=== PATIENT | female | born 1980 | race Caucasian/White ===

== ENCOUNTER 2020-05-10 16:11 | Emergency (ER) | payer OTHER, SELFPAY ==
[~2020-05-10] VITALS: Ht 165.1 cm; Wt 83.9 kg
[2020-05-10 16:14] VITALS: BP_SYST 125
--- NOTE | 2020-05-10 16:21 | NUR ---
Placed in waiting room
--- NOTE | 2020-05-10 16:30 | NUR ---
Pt walked in to ER with c/o cough and SOB x 3 days. V/S stable, no distress noted. Pt is currently afebrile.
--- NOTE | 2020-05-10 17:00 | NUR ---
ER at bedside examining patient.
[2020-05-10 18:51] VITALS: BP_SYST 125
--- NOTE | 2020-05-10 18:51 | NUR ---
Patient given written and verbal discharge instructions and verbalizes understanding. ER MD discussed with patient the results and treatment provided. Patient in stable condition. ID arm band removed. No prescriptions given. Patient educated on pain management and to follow up with PMD. Pain Scale 0. Opportunity for questions provided and answered. Medication side effect fact sheet provided.
== END 2020-05-10 18:51 | disposition still patient (30) ==
LOC: SED 16:11
DX: R06.02 Shortness of breath (principal); Z20.828 Contact with and (suspected) exposure to other viral communicable diseases
CPT/HCPCS: 36415; 71045; 99284

== ENCOUNTER 2022-11-08 21:05 | Emergency (ER) | payer OTHER ==
[~2022-11-08] VITALS: Ht 165.1 cm; Wt 86.2 kg
[2022-11-08] MEDS ORDERED: NACL 0.9% 1,000 ML IV ONE (21:15)
[2022-11-08] MEDS ORDERED: KETOROLAC TROMETHAMINE 30 MG VIAL IVP ONE (21:15)
[2022-11-08] MEDS ORDERED: ONDANSETRON HCL 4 MG/2 ML VIAL IVP ONE (21:15)
[2022-11-08] MEDS ORDERED: MORPHINE 4 MG INJ. 4 MG/ML VIAL IVP ONE ×2 (21:15→23:30)
[2022-11-08 21:17] VITALS: BP_SYST 137
--- NOTE | 2022-11-08 21:17 | NUR ---
Patient to ER bed 8 to gown for evaluation. Side rails up. Report given to Geovani KO.
--- NOTE | 2022-11-08 21:27 | NUR ---
ER Dr. OATES at bedside examining patient.
--- NOTE | 2022-11-08 21:30 | NUR ---
Pt bib self from work, ambulated to bed 8. Pt A&Ox4, able to make needs known. Pt c/o right flank pain beginning 2 hours ago and pain progressively got worse. Pt rates pain 10/10. Pt denies SOB and chest pain, fever and chills. Pt denies N/V. Pt states she had diarrhea in the morning. Pt denies blood in stools. Safety precautions in place.
[2022-11-08 21:56] LABS: BASOPHILS # (AUTO) 0.1 K/uL (0.0-0.2); BASOPHILS % (AUTO) 0.5 % (0.0-2.0); EOSINOPHILS # (AUTO) 0.1 K/uL (0.0-0.4); HEMATOCRIT 41.8 % (36-48); LYMPHOCYTES # (AUTO) 3.4 K/uL (1.0-5.5); LYMPHOCYTES % (AUTO) 24.7 % (20.5-51.5); MEAN CORPUSCULAR HEMOGLOBIN 27 pg (27-31); MEAN CORPUSCULAR HGB CONC 33 % (32-36); MEAN CORPUSCULAR VOLUME 82 fL (79.0-98.0); MONOCYTES # (AUTO) 0.8 K/uL (0.0-1.0); NEUTROPHILS # (AUTO) 9.5 K/uL (1.8-7.7); NEUTROPHILS % (AUTO) 67.8 % (40.0-70.0); PLATELET COUNT (AUTO) 383 K/uL (130-430); RED BLOOD CELL COUNT(AUTO) 5.11 MIL/uL (4.2-6.2); RED CELL DISTRIBUTION WIDTH 13.7 % (9.0-15.0); WHITE BLOOD COUNT (AUTO) 13.9 K/uL (4.8-10.8)
[2022-11-08 22:29] LABS: BILIRUBIN,URINE NEGATIVE (NEGATIVE); BLOOD, URINE 1+ (NEGATIVE); COLOR,URINE YELLOW (YELLOW); GLUCOSE,URINE TRACE (NEGATIVE); KETONES,URINE NEGATIVE (NEGATIVE); LEUKOCYTE ESTERASE ,URINE 2+ (NEGATIVE); NITRITE, URINE POSITIVE (NEGATIVE); PH,URINE 6.5 (5.0-8.0); PROTEIN URINE 1+ (NEGATIVE)
[2022-11-08 22:40] LABS: CALCIUM 8.9 mg/dL (8.4-11.0); CREATININE 0.97 mg/dL (0.55-1.30)
[2022-11-08 22:40] LABS: CLARITY/URINE HAZY (CLEAR)
[2022-11-08 22:44] LABS: ALBUMIN 4.2 g/dL (3.4-4.8); TOTAL BILIRUBIN 0.6 mg/dL (0.0-1.0)
[2022-11-08 23:05] LABS: BACTERIA,URINE MANY /HPF (None Seen); WBC,URINE 50-80 /HPF (0-3)
[2022-11-08 23:06] LABS: MUCUS,URINE None Seen /LPF (None Seen)
[2022-11-08] MEDS ORDERED: cefTRIAXone 1 GM in D5W 50 ML IV ONE (23:30)
[2022-11-08] MEDS ORDERED: cefTRIAXone 1 GM IVPB PREMIX 50 ML IV ONE (23:36)
[2022-11-09] MEDS ORDERED: CEPH-548 PO ×3 (01:07→01:48)
[2022-11-09] MEDS ORDERED: IBUP-1970 PO ×3 (01:07→01:48)
[2022-11-09] MEDS ORDERED: OXYC10TA56 PO ×4 (01:07→01:48)
[2022-11-09 01:20] VITALS: BP_SYST 132
--- NOTE | 2022-11-09 01:20 | NUR ---
Patient given written and verbal discharge instructions and verbalizes understanding. ER DR MAYA discussed with patient the results and treatment provided. Patient in stable condition. ID arm band removed. Rx of OXYCONTIN, MOTRIN, CEPHALEXIN given. Patient educated on pain management and to follow up with PMD. Pain Scale 2/10. Opportunity for questions provided and answered. Medication side effect fact sheet provided.
[2022-11-09] MEDS ORDERED: OXYIR5 PO (10:23)
== END 2022-11-09 01:20 | disposition home or self-care (01) ==
LOC: SED 21:05
DX: N12 Tubulo-interstitial nephritis, not specified as acute or chronic (principal); N13.30 Unspecified hydronephrosis; R30.0 Dysuria; Z79.899 Other long term (current) drug therapy
CPT/HCPCS: 99285; 74176; 96365; 96375; 96361; 80053; 81000; 83690; 85025; 87040; 87086; 36415; 76376; 96376; 83605; J0696; J1885; J2405; J2270; J7030